=== PATIENT | male | born 1985 | race African-American/Black ===

== ENCOUNTER 2024-12-08 01:54 | Emergency (ER) | payer OTHER ==
[2024-12-08 02:03] VITALS: PULSE 84; RESP 16; O2SAT 99
== END 2024-12-08 03:53 | disposition left against medical advice (07) ==
LOC: ER 01:54
DX: J02.9 Acute pharyngitis, unspecified (principal); Z53.21 Procedure and treatment not carried out due to patient leaving prior to being seen by health care provider